=== PATIENT | female | born 1965 | race Caucasian/White ===

== ENCOUNTER 2017-12-24 00:57 | Emergency (ER) | payer BC, MEDICAID ==
[~2017-12-24] VITALS: Ht 160 cm; Wt 68.2 kg
[~2017-12-24 00:57] MED LIST: AMOX500C6 PO; NO HOME MEDS; ONDA4TAB59 PO; ONDA8TAB9 PO; PSEU120T55 PO
[2017-12-24] MEDS ORDERED: LORazepam 1 MG tablet PO ONE (02:00)
[2017-12-24] MEDS ORDERED: LORA-269 PO (02:03)
[2017-12-24 02:06] VITALS: BP 147/96
== END 2017-12-24 03:00 | disposition home or self-care (01) ==
LOC: ER 00:57
DX: M79.89 Other specified soft tissue disorders (principal); F41.9 Anxiety disorder, unspecified; F32.9 Major depressive disorder, single episode, unspecified; Z79.899 Other long term (current) drug therapy
CPT/HCPCS: 93005; 99284

== ENCOUNTER 2019-05-14 12:58 | Emergency (ER) | payer BC, OTHER ==
[~2019-05-14] VITALS: Ht 160 cm; Wt 90.9 kg
[~2019-05-14 12:58] MED LIST changes: +LORA-269 PO
[2019-05-14 13:02] VITALS: BP 133/71
[2019-05-14] MEDS ORDERED: IBUP-1986 PO (14:04)
== END 2019-05-14 14:12 | disposition home or self-care (01) ==
LOC: ER 12:58
DX: M54.5 Low back pain (principal); M53.3 Sacrococcygeal disorders, not elsewhere classified; G57.01 Lesion of sciatic nerve, right lower limb; F32.9 Major depressive disorder, single episode, unspecified; Z79.899 Other long term (current) drug therapy
CPT/HCPCS: 72100; 72220; 99284